=== PATIENT | female | born 1955 | race Caucasian/White ===

== ENCOUNTER 2021-10-25 11:03 | Inpatient (IN) ==
[2021-10-25] MEDS ORDERED: 0.9 % Sodium Chloride 1,000 ML IVC ONE ×2 (12:07→13:13)
[2021-10-25 12:26] LABS: Basophils # 0.1 K/mcL (0.0-0.2); Basophils % 0.6 %; Hematocrit 27.1 % (35.3-44.9); Hemoglobin 9.1 g/dL (11.5-15.4); Immature Granulocytes % 2.8 % (0-4); Lymphocytes # 0.8 K/mcL (0.6-4.6); Lymphocytes % 8.6 %; Mean Corpuscular HGB Conc 33.6 g/dL (31.6-35.5); Mean Corpuscular Hemoglobin 30.5 pg (28.0-33.3); Mean Corpuscular Volume 90.9 fL (83.0-100.0); Mean Platelet Volume 10.7 fL (9.4-12.4); Monocytes # 1.6 K/mcL (0.0-1.3); Monocytes % 16.8 %; Neutrophils # 6.7 K/mcL (1.6-8.9); Nucleated Red Blood Cells 0.2 /100 WBC (0); Platelet Count 497 K/mcL (140-400); Red Blood Count 2.98 M/mcL (3.82-4.97); Red Cell Distribution Width 14.7 % (11.5-14.5); Segmented Neutrophils % 71.2 %; White Blood Count 9.4 K/mcL (4.3-11.1)
[2021-10-25 12:46] LABS: Calcium 8.7 mg/dL (8.6-10.3); Potassium 4.2 mEq/L (3.5-5.1)
[2021-10-25] MEDS ORDERED: Isovue-370 500 ML BOTTLE IVP ONE (12:47)
[2021-10-25 13:20] LABS: Troponin I 0.04 ng/mL (< 0.04)
[2021-10-25 13:35] LABS: INR 2.4; Prothrombin Time 26.5 Seconds (9.4-12.1)
[2021-10-25 13:38] LABS: Activated Partial Thrombo Time 36.8 Seconds (26.0-36.0)
[2021-10-25 14:23] LABS: Influenza A PCR Negative (Negative); Influenza B PCR Negative (Negative); Resp. Syncytial Virus PCR Negative (Negative)
[2021-10-25 14:46] LABS: SARS-CoV-2 by PCR (In House) Negative (Negative)
[2021-10-25] MEDS ORDERED: cefTRIAXone 1,000 MG in 0.9 % Sodium Chloride 10 ML IVP ONE (15:11)
[2021-10-25] MEDS ORDERED: MetroNIDAZOLE 500 MG/100 ML 500 MG/100 ML BAG IVPB ONE (15:11)
[2021-10-25] MEDS: Norepinephrine 4 MG/254 ML IV.SOLN IVC SCH (15:51)
[2021-10-25] MEDS ORDERED: *HR* OxyCODONE Immed Rel 5 MG TABLET PO PRN (17:20)
[2021-10-25] MEDS ORDERED: Naloxone 0.4 MG/ML INJ IVP PRN (17:20)
[2021-10-25] MEDS ORDERED: Acetaminophen 325 MG TABLET PO PRN (17:20)
[2021-10-25] MEDS: Ringers Solution, Lactated 1,000 ML IVC SCH (17:49)
[2021-10-25] MEDS: Apixaban 5 MG TABLET PO SCH (20:18)
[2021-10-25] MEDS: Budesonide/Formoterol 160/4.5 1 PUFF INH IH SCH (20:24)
[2021-10-25] MEDS: Piperacillin/Tazobactam 3.375 GM in 0.9 % Sodium Chloride Mini Bag 100 ML IVPB SCH (23:59)
[2021-10-26] MEDS: Ringers Solution, Lactated 1,000 ML IVC SCH (04:35)
[2021-10-26 05:04] LABS: Basophils % 0.5 %; Hematocrit 23.1 % (35.3-44.9); Hemoglobin 7.6 g/dL (11.5-15.4); Immature Granulocytes % 1.9 % (0-4); Lymphocytes # 0.7 K/mcL (0.6-4.6); Lymphocytes % 8.2 %; Mean Corpuscular HGB Conc 32.9 g/dL (31.6-35.5); Mean Corpuscular Hemoglobin 30.2 pg (28.0-33.3); Mean Corpuscular Volume 91.7 fL (83.0-100.0); Monocytes % 12.1 %; Neutrophils # 6.1 K/mcL (1.6-8.9); Platelet Count 454 K/mcL (140-400); Red Blood Count 2.52 M/mcL (3.82-4.97); Segmented Neutrophils % 77.3 %; White Blood Count 7.9 K/mcL (4.3-11.1)
[2021-10-26 05:25] LABS: Calcium 7.8 mg/dL (8.6-10.3)
[2021-10-26] MEDS: Apixaban 5 MG TABLET PO SCH ×2 (08:42→21:50)
[2021-10-26] MEDS: Piperacillin/Tazobactam 3.375 GM in 0.9 % Sodium Chloride Mini Bag 100 ML IVPB SCH ×3 (08:42→23:58)
[2021-10-26] MEDS: Norepinephrine 4 MG/254 ML IV.SOLN IVC SCH (08:42)
[2021-10-26] MEDS ORDERED: Aspirin Enteric Coated 81 MG Tablet PO SCH (09:00)
[2021-10-26] MEDS ORDERED: Tiotropium 10 INH DOSE IH SCH (10:00)
[2021-10-26] MEDS: Budesonide/Formoterol 160/4.5 1 PUFF INH IH SCH ×2 (10:38→20:47)
[2021-10-26] MEDS ORDERED: Acetaminophen 325 MG TABLET PO PRN (12:56)
[2021-10-26] MEDS ORDERED: *HR* OxyCODONE Immed Rel 5 MG TABLET PO PRN (12:56)
[2021-10-26] MEDS ORDERED: Norepinephrine 4 MG/254 ML IV.SOLN IVC SCH (12:56)
[2021-10-26] MEDS ORDERED: Naloxone 0.4 MG/ML INJ IVP PRN (12:56)
[2021-10-26 12:58] LABS: Immature Reticulocyte % 29.8 % (11.0-38.0); Retculocyte # 0.07 M/mcL (0.05-0.10); Reticulocyte % 2.9 % (1.6-2.8)
[2021-10-26 13:27] LABS: % Iron Saturation 8 % (15-50); Iron 15 mcg/dL (50-170); Transferrin 133 mg/dL (203-362)
[2021-10-26 13:30] LABS: Ferritin 872 ng/mL (10-120)
[2021-10-26 13:35] LABS: Folate 20.9 ng/mL (3.0-16.0)
[2021-10-26] MEDS ORDERED: 0.9 % Sodium Chloride 1,000 ML IVC ONE (23:19)
[2021-10-27] MEDS ORDERED: *HR* Metoprolol 5 MG/5 ML VIAL IVP ONE (05:45)
[2021-10-27 06:39] LABS: Basophils # 0.1 K/mcL (0.0-0.2); Basophils % 0.6 %; Eosinophils % 0.1 %; Hematocrit 21.6 % (35.3-44.9); Hemoglobin 7.1 g/dL (11.5-15.4); Immature Granulocytes % 2.3 % (0-4); Lymphocytes # 0.6 K/mcL (0.6-4.6); Lymphocytes % 7.8 %; Mean Corpuscular HGB Conc 32.9 g/dL (31.6-35.5); Mean Corpuscular Hemoglobin 30.1 pg (28.0-33.3); Mean Corpuscular Volume 91.5 fL (83.0-100.0); Mean Platelet Volume 10.5 fL (9.4-12.4); Monocytes # 0.9 K/mcL (0.0-1.3); Monocytes % 11.4 %; Nucleated Red Blood Cells 0.3 /100 WBC (0); Platelet Count 447 K/mcL (140-400); Red Blood Count 2.36 M/mcL (3.82-4.97); Red Cell Distribution Width 15.4 % (11.5-14.5); Segmented Neutrophils % 77.8 %; White Blood Count 7.7 K/mcL (4.3-11.1)
[2021-10-27 08:10] LABS: BUN/Creatinine Ratio 7 (6-26); Blood Urea Nitrogen 7 mg/dL (8-23); Calcium 7.6 mg/dL (8.6-10.3); Carbon Dioxide 24 mEq/L (23-29); Chloride 107 mEq/L (98-107); Glucose 109 mg/dL (70-105); Osmolality,Calculated 289 (280-300); Potassium 3.5 mEq/L (3.5-5.1); Sodium 140 mEq/L (136-145); eGFR For African Americans > 60 (> 60); eGFR For Non-African Americans 58 (> 60)
[2021-10-27] MEDS: Piperacillin/Tazobactam 3.375 GM in 0.9 % Sodium Chloride Mini Bag 100 ML IVPB SCH ×2 (08:33→14:52)
[2021-10-27] MEDS: Apixaban 5 MG TABLET PO SCH ×2 (08:33→20:22)
[2021-10-27] MEDS: Aspirin Enteric Coated 81 MG Tablet PO SCH (08:33)
[2021-10-27] MEDS: Budesonide/Formoterol 160/4.5 1 PUFF INH IH SCH ×2 (10:51→20:18)
[2021-10-27] MEDS: Tiotropium 10 INH DOSE IH SCH (10:51)
[2021-10-27 12:50] LABS: Troponin I 0.04 ng/mL (< 0.04)
[2021-10-28] MEDS: Piperacillin/Tazobactam 3.375 GM in 0.9 % Sodium Chloride Mini Bag 100 ML IVPB SCH ×2 (01:19→07:34)
[2021-10-28] MEDS ORDERED: 0.9 % Sodium Chloride 1,000 ML IVC ONE (03:27)
[2021-10-28] MEDS: GuaiFENesin Liq 200 MG/10 ML UDC PO PRN (04:18)
[2021-10-28 05:54] LABS: Hemoglobin 6.4 g/dL (11.5-15.4); Mean Corpuscular Volume 93.9 fL (83.0-100.0); Mean Platelet Volume 10.4 fL (9.4-12.4); Platelet Count 443 K/mcL (140-400); Red Blood Count 2.13 M/mcL (3.82-4.97); Red Cell Distribution Width 15.4 % (11.5-14.5); White Blood Count 6.9 K/mcL (4.3-11.1)
[2021-10-28 05:57] LABS: BUN/Creatinine Ratio 8 (6-26); Blood Urea Nitrogen 8 mg/dL (8-23); Calcium 7.4 mg/dL (8.6-10.3); Carbon Dioxide 25 mEq/L (23-29); Chloride 110 mEq/L (98-107); Glucose 97 mg/dL (70-105); Magnesium 1.6 mg/dL (1.6-2.6); Osmolality,Calculated 290 (280-300); Potassium 3.4 mEq/L (3.5-5.1); Sodium 141 mEq/L (136-145); eGFR For African Americans > 60 (> 60); eGFR For Non-African Americans 54 (> 60)
[2021-10-28] MEDS: Apixaban 5 MG TABLET PO SCH (07:34)
[2021-10-28] MEDS: Aspirin Enteric Coated 81 MG Tablet PO SCH (07:34)
[2021-10-28] MEDS: Budesonide/Formoterol 160/4.5 1 PUFF INH IH SCH ×2 (08:06→20:34)
[2021-10-28] MEDS: Tiotropium 10 INH DOSE IH SCH (08:06)
[2021-10-28 10:59] LABS: Hematocrit 22.9 % (35.3-44.9); Hemoglobin 7.2 g/dL (11.5-15.4)
[2021-10-28] MEDS ORDERED: 0.9 % Sodium Chloride 250 ML ONE (12:03)
[2021-10-29 05:25] LABS: Hematocrit 25.3 % (35.3-44.9); Hemoglobin 8.1 g/dL (11.5-15.4); Mean Corpuscular Hemoglobin 29.7 pg (28.0-33.3); Mean Corpuscular Volume 92.7 fL (83.0-100.0); Mean Platelet Volume 10.6 fL (9.4-12.4); Platelet Count 496 K/mcL (140-400); Red Blood Count 2.73 M/mcL (3.82-4.97); Red Cell Distribution Width 15.5 % (11.5-14.5); White Blood Count 7.1 K/mcL (4.3-11.1)
[2021-10-29 05:53] LABS: BUN/Creatinine Ratio 5 (6-26); Blood Urea Nitrogen 5 mg/dL (8-23); Calcium 8.1 mg/dL (8.6-10.3); Carbon Dioxide 24 mEq/L (23-29); Chloride 109 mEq/L (98-107); Glucose 91 mg/dL (70-105); Magnesium 1.8 mg/dL (1.6-2.6); Osmolality,Calculated 291 (280-300); Phosphorous 3.6 mg/dL (2.7-4.5); Potassium 3.7 mEq/L (3.5-5.1); Sodium 142 mEq/L (136-145); eGFR For African Americans > 60 (> 60); eGFR For Non-African Americans > 60 (> 60)
[2021-10-29] MEDS: Tiotropium 10 INH DOSE IH SCH (07:46)
[2021-10-29] MEDS: Budesonide/Formoterol 160/4.5 1 PUFF INH IH SCH ×2 (07:46→20:11)
[2021-10-29] MEDS: Aspirin Enteric Coated 81 MG Tablet PO SCH (07:55)
[2021-10-29] MEDS ORDERED: *HR* Metoprolol 5 MG/5 ML VIAL IVP ONE ×2 (08:15→23:32)
[2021-10-29] MEDS ORDERED: DilTIAZem CD (24hr) 120 MG CAP.ER.24H PO SCH (09:00)
[2021-10-29] MEDS ORDERED: Perflutren Lipid Microsphere 1.3 ML in 0.9 % Sodium Chloride 8.7 ML IVP PRN (11:38)
[2021-10-29 12:52] LABS: Thyroid Stimulating Hormone 2.007 mcIU/mL (0.340-5.600)
[2021-10-29] MEDS ORDERED: DilTIAZem CD (24hr) 120 MG CAP.ER.24H PO ONE (17:00)
[2021-10-29] MEDS: GuaiFENesin Liq 200 MG/10 ML UDC PO PRN (19:34)
[2021-10-29] MEDS: Metoprolol XL (24 HR) Succ 50 MG TAB.ER.24H PO SCH (19:34)
[2021-10-30] MEDS: Tiotropium 10 INH DOSE IH SCH (07:45)
[2021-10-30] MEDS: Budesonide/Formoterol 160/4.5 1 PUFF INH IH SCH ×2 (07:45→19:57)
[2021-10-30] MEDS: Aspirin Enteric Coated 81 MG Tablet PO SCH (08:13)
[2021-10-30] MEDS: DilTIAZem CD (24hr) 240 MG CAP.ER.24H PO SCH (08:14)
[2021-10-30] MEDS: Metoprolol XL (24 HR) Succ 50 MG TAB.ER.24H PO SCH ×2 (08:14→20:47)
[2021-10-31 02:50] LABS: Hematocrit 24.8 % (35.3-44.9); Hemoglobin 7.9 g/dL (11.5-15.4); Mean Corpuscular HGB Conc 31.9 g/dL (31.6-35.5); Mean Corpuscular Hemoglobin 29.7 pg (28.0-33.3); Mean Corpuscular Volume 93.2 fL (83.0-100.0); Mean Platelet Volume 10.2 fL (9.4-12.4); Platelet Count 502 K/mcL (140-400); Red Blood Count 2.66 M/mcL (3.82-4.97); Red Cell Distribution Width 15.7 % (11.5-14.5); White Blood Count 6.2 K/mcL (4.3-11.1)
[2021-10-31 03:09] LABS: BUN/Creatinine Ratio 3 (6-26); Blood Urea Nitrogen 3 mg/dL (8-23); Calcium 8.3 mg/dL (8.6-10.3); Carbon Dioxide 26 mEq/L (23-29); Chloride 109 mEq/L (98-107); Glucose 88 mg/dL (70-105); Osmolality,Calculated 288 (280-300); Potassium 3.6 mEq/L (3.5-5.1); Sodium 141 mEq/L (136-145); eGFR For African Americans > 60 (> 60); eGFR For Non-African Americans > 60 (> 60)
[2021-10-31] MEDS: Aspirin Enteric Coated 81 MG Tablet PO SCH (08:02)
[2021-10-31] MEDS: Metoprolol XL (24 HR) Succ 50 MG TAB.ER.24H PO SCH (08:02)
[2021-10-31] MEDS: DilTIAZem CD (24hr) 240 MG CAP.ER.24H PO SCH (08:02)
[2021-10-31] MEDS ORDERED: Lidocaine -MPF 2% 5 ML VIAL ONE ×2 (08:49→09:23)
[2021-10-31] MEDS ORDERED: *HR* Metoprolol 5 MG/5 ML VIAL IVP ONE (09:23)
[2021-10-31] MEDS: Budesonide/Formoterol 160/4.5 1 PUFF INH IH SCH (10:54)
[2021-10-31] MEDS: Tiotropium 10 INH DOSE IH SCH (10:55)
[2021-10-31 11:26] VITALS: BP 99/63; PULSE 71; TEMP 97.6; O2SAT 90
[2021-10-31] MEDS ORDERED: Apixaban 5 MG TABLET PO SCH (21:00)
== END 2021-10-31 12:50 | disposition home or self-care (01) | DRG 871 ==
LOC: EMEROOARM 11:03 → SUATTDRO 16:34 → ICNU 16:34 → 3ANU 10-26 12:40
PROVIDERS: ADMIT Family Medicine; ATTEND Internal Medicine
PROC: ENDOEBX (2021-10-31 08:00)